=== PATIENT | male | born 1985 | race Two or more races ===

== ENCOUNTER 2017-12-14 07:43 | Emergency (ER) | payer SELFPAY ==
[~2017-12-14] VITALS: Ht 162.6 cm; Wt 75.7 kg
[2017-12-14 07:48] VITALS: Ht 162.6 cm; Wt 75.7 kg
[2017-12-14 10:28] VITALS: BP 121/85
== END 2017-12-14 10:28 | disposition home or self-care (01) ==
LOC: ED 07:43
DX: S13.4XXA Sprain of ligaments of cervical spine, initial encounter (principal); S39.012A Strain of muscle, fascia and tendon of lower back, initial encounter; R51 Headache; V49.9XXA Car occupant (driver) (passenger) injured in unspecified traffic accident, initial encounter; Y93.I9 Activity, other involving external motion; Y92.413 State road as the place of occurrence of the external cause; Y99.8 Other external cause status